=== PATIENT | female | born 1960 | race Caucasian/White ===

== ENCOUNTER → 2016-12-15 | Outpatient (CLI) | payer BC ==
[~2016-12-15] MED LIST: ATRV10T PO; BSP10T PO; CHOL10003 PO; FLUO20CA25 PO; FLUO40CA PO; LORA1TAB PO; NF-ESOM40C PO
--- NOTE | 2016-12-18 17:50 | Diagnostic Imaging Report ---
Bilateral screening mammogram. The current study was also evaluated with a Computer Aided Detection (CAD) system. INDICATION: Screening. No current complaints stated on the questionnaire. COMPARISON: 10/09/15. FINDINGS: The breasts are composed of heterogeneously dense parenchyma which may decrease mammographic sensitivity. There are scattered benign-appearing calcifications seen. Allowing for technique and positional differences, no suspicious change is seen. IMPRESSION: No significant change. ACR BI-RADS Category 2: Benign findings. Result letter will be mailed to the patient. Note: At least 10% of breast cancer is not imaged by mammography. Dictated by: Dictated on workstation # [id number]
== END ==
LOC: RAD 07:19
PROVIDERS: ATTEND Obstetrics & Gynecology
DX: Z12.31 Encounter for screening mammogram for malignant neoplasm of breast (principal)
CPT/HCPCS: 77067

== ENCOUNTER 2017-12-03 13:45 | Outpatient (RCR) | payer BC | END 2017-12-03 14:20 | disposition home or self-care (01) | PROVIDERS: ATTEND Orthopaedic Surgery | DX: M17.12 Unilateral primary osteoarthritis, left knee (principal); E66.01 Morbid (severe) obesity due to excess calories ==

== ENCOUNTER → 2017-12-16 | Outpatient (CLI) | payer BC ==
--- NOTE | 2017-12-16 10:11 | Diagnostic Imaging Report ---
INDICATION: Routine screening. COMPARISON: 12/15/2016 and 10/09/2015. EXAMINATION: 3D digital tomography bilateral. TECHNIQUE: Bilateral 3D digital tomographic views were obtained with [employer] and reviewed on a [employer] workstation. In addition, CAD (computer aided detection) was utilized. FINDINGS: Both breasts are heterogeneously dense, limiting the sensitivity of mammography. The parenchymal pattern appears stable. A benign-appearing nodular density in the retroareolar medial left breast appears stable. No new mass or malignant appearing microcalcifications are seen. The axillae are unremarkable. IMPRESSION: No mammographic features suspicious for malignancy are identified. ACR BI-RADS Category 2: Benign findings. Result letter will be mailed to the patient. Note: At least 10% of breast cancer is not imaged by mammography. Dictated by: Dictated on workstation # [id number]
== END ==
LOC: RAD 07:52
PROVIDERS: ATTEND Obstetrics & Gynecology
DX: Z12.31 Encounter for screening mammogram for malignant neoplasm of breast (principal)
CPT/HCPCS: 77067

== ENCOUNTER → 2018-05-12 | Outpatient (CLI) | payer BC ==
--- NOTE | 2018-05-12 08:23 | Diagnostic Imaging Report ---
DEXA scan Indication: Screening for osteoporosis. There are no prior studies available for comparison. The bone mineral density of the hips and spine was measured. The T score for the spine is 2.2. The T score for each hip is 1.5. All these values are within normal limits. Impression: The bone mineral density of the hips and spine is within normal limits. Dictated by: Dictated on workstation # [id number]
== END ==
LOC: RAD 07:20
PROVIDERS: ATTEND Family Medicine
DX: Z13.820 Encounter for screening for osteoporosis (principal); M85.89 Other specified disorders of bone density and structure, multiple sites; Z78.0 Asymptomatic menopausal state
CPT/HCPCS: 77080

== ENCOUNTER → 2018-11-01 | Outpatient (CLI) | payer BC ==
--- NOTE | 2018-11-01 14:01 | Diagnostic Imaging Report ---
INDICATION: Right leg pain. Grayscale, color-flow and duplex Doppler evaluation of the right lower extremity arterial system was performed. Primarily triphasic waveforms are identified throughout the right lower extremity arterial system. Velocities are normal. No high-grade stenosis or occlusion is seen. The anterior tibial artery was not well visualized but there is flow within the posterior tibial and dorsalis pedis at the ankle. IMPRESSION: Unremarkable right lower extremity arterial Doppler. Dictated by: Dictated on workstation # [id number]
== END ==
LOC: RAD 12:16
PROVIDERS: ATTEND Family Medicine
DX: M79.604 Pain in right leg (principal)
CPT/HCPCS: 93926

== ENCOUNTER → 2018-11-17 | Outpatient (CLI) | payer BC | LOC: CARD 08:04 | PROVIDERS: ATTEND Family Medicine | DX: R07.9 Chest pain, unspecified (principal); R60.9 Edema, unspecified | CPT/HCPCS: 93306 ==

== ENCOUNTER → 2018-12-19 | Outpatient (CLI) | payer BC ==
--- NOTE | 2018-12-19 11:55 | Diagnostic Imaging Report ---
INDICATION: Screening. COMPARISON: 12/16/2017, 12/15/2016, and 10/10/2015. TECHNIQUE: Bilateral CC and MLO 3D mammography was performed. The current study was also evaluated with a Computer Aided Detection (CAD) system. FINDINGS: The fibroglandular tissue is heterogeneously dense bilaterally. There are a few benign type calcifications. There is no dominant mass, spiculated lesion, or suspicious calcifications identified. The skin, nipples, and axillae are unremarkable. IMPRESSION: Benign findings. ACR BI-RADS Category 2: Benign findings. Result letter will be mailed to the patient. Note: At least 10% of breast cancer is not imaged by mammography. Dictated by: Dictated on workstation # [id number]
== END ==
LOC: RAD 07:12
PROVIDERS: ATTEND Obstetrics & Gynecology
DX: Z12.31 Encounter for screening mammogram for malignant neoplasm of breast (principal)
CPT/HCPCS: 77067

== ENCOUNTER → 2018-12-27 | Outpatient (CLI) | payer BC | LOC: CARD 09:53 | PROVIDERS: ATTEND Family Medicine | DX: R07.9 Chest pain, unspecified (principal) | CPT/HCPCS: 93017 ==

== ENCOUNTER 2019-01-05 20:37 | Outpatient (CLI) | payer BC | END 2019-01-06 06:09 | disposition home or self-care (01) | LOC: SLEEP 20:37 | PROVIDERS: ATTEND Family Medicine | DX: G47.33 Obstructive sleep apnea (adult) (pediatric) (principal); G47.10 Hypersomnia, unspecified; I10 Essential (primary) hypertension; R06.83 Snoring; F39 Unspecified mood [affective] disorder | CPT/HCPCS: 95810 ==

== ENCOUNTER 2019-03-02 09:45 | Outpatient (CLI) | payer BC ==
[~2019-03-02] VITALS: Ht 162.6 cm; Wt 87.5 kg
[2019-03-02] MEDS ORDERED: MEDR2.5T6 PO (10:19)
[2019-03-02] MEDS ORDERED: ARIP5TAB12 PO (10:19)
[2019-03-02] MEDS ORDERED: CHOL500044 PO (10:19)
[2019-03-02] MEDS ORDERED: ESTR1TAB24 PO (10:19)
[2019-03-02] MEDS ORDERED: LORA10TA7 PO (10:19)
[2019-03-02] MEDS ORDERED: VILA40TA PO (10:19)
== END 2019-03-02 10:23 | disposition home or self-care (01) ==
LOC: PREOP 09:45
PROVIDERS: ATTEND Surgery
DX: Z01.818 Encounter for other preprocedural examination (principal)

== ENCOUNTER 2019-03-08 08:38 | Day surgery (SDC) | payer BC ==
[2019-03-08] VITALS (13 sets, daily range): BP systolic 88–130; BP diastolic 51–77
[~2019-03-08] VITALS: Ht 162.6 cm; Wt 87.5 kg
[~2019-03-08 08:38] MED LIST changes: +ARIP5TAB12 PO; +CHOL500044 PO; +ESTR1TAB24 PO; +LORA10TA7 PO; +MEDR2.5T6 PO; +VILA40TA PO
[2019-03-08] MEDS ORDERED: NS IV 500 ML 500 ML IV PRN (09:04)
[2019-03-08] MEDS ORDERED: LIDOCAINE JELLY 2% 6 ML SYRINGE MM PRN (09:15)
[2019-03-08] MEDS ORDERED: fentaNYL INJECTION 100 MCG/2 ML AMP IVP ONE (09:15)
[2019-03-08] MEDS ORDERED: MIDAZOLAM 2 MG/2 ML (VERSED) VIAL IVP ONE (09:15)
--- OUTSIDE RECORDS SUMMARY | 2019-03-08 09:17 | XMS REPORT ---
Author Author SAROJ CUELLO Organization [facility] Address [address] [place] [address] Care Team Providers Care Irrigationist Name Role Phone SAROJ CUELLO Unavailable PROBLEMS Type Condition ICD9-CM Code [id number] Code Onset Dates Condition Status SNOMED Code Problem Major depressive disorder, recurrent episode, moderate F33.1 Active 858411010 ALLERGIES No Information ENCOUNTERS Encounter Location Date Diagnosis [facility] [id number] [place] [phone] Oct, [place] [id number] [place] [phone] Jul, Major depressive disorder, recurrent episode, moderate F33.1 [facility] [id number] [place] [phone] Apr, [place] [id number] [place] [phone] Mar, Major depressive disorder, recurrent episode, moderate F33.1 [facility] [id number] [place] [phone] Mar, Major depressive disorder, recurrent episode, moderate F33.1 [facility] [id number] [place] [phone] Mar, Major depressive disorder, recurrent episode, moderate F33.1 [facility] [id number] [place] [phone] Feb, Major depressive disorder, recurrent episode, moderate F33.1 [facility] [id number] [address] Feb, Major depressive disorder, recurrent episode, moderate F33.1 [facility] [address] [facility] [id number] [address] Feb, Major depressive disorder, recurrent episode, moderate F33.1 [facility] [id number] [address] December, Major depressive disorder, recurrent episode, mild F33.0 [facility] [id number] [address] Nov, Major depressive disorder, recurrent episode, mild F33.0 [facility] [id number] [address] Oct, Major depressive disorder, recurrent episode, mild F33.0 [facility] [id number] [address] Aug, Acute non-recurrent frontal sinusitis J01.10 IMMUNIZATIONS No Known Immunizations SOCIAL HISTORY Never Assessed REASON FOR VISIT MIAH f/candida flores ma, no controlled meds prescribed by this narrative writer PLAN OF CARE Activity Details Follow Up 3 Months Reason: VITAL SIGNS Height 66 in 2018-08-09 Weight 209 lbs 2018-08-09 Heart Rate 94 bpm 2018-08-09 Respiratory Rate 29 2018-08-09 BMI 33.73 kg/m2 2018-08-09 Blood pressure systolic 132 mmHg 2018-08-09 Blood pressure diastolic 96 mmHg 2018-08-09 MEDICATIONS Medication Instructions Dosage Frequency Start Date End Date Duration Status Estradiol 1 MG Orally Once a day 1 tablet 24h Active Vitamin D Active Omeprazole 10 MG Orally Once a day 1 capsule 24h Active Abilify 5 MG Orally Once a day 1 tablet 24h 30 days Active Loratadine 10 MG Orally Once a day 1 tablet 24h Active Viibryd 40 MG Orally Once a day 1 tablet with food 24h 30 days Active Multivitamin Active MedroxyPROGESTERone Acetate 2.5 MG Orally Once a day 1 tablet with food 24h Active RESULTS No Results PROCEDURES No Known procedures INSTRUCTIONS MEDICATIONS ADMINISTERED No Known Medications MEDICAL (GENERAL) HISTORY Type Description Date Medical History GERD Medical History MDD Medical History anxiety
--- OUTSIDE RECORDS SUMMARY | 2019-03-08 09:18 | XMS REPORT ---
Author Author KATALINA SAROJ [facility] Address [address] [place] [address] Care Team Providers Care Performing Arts Technicians Name Role Phone KATALINA SAROJ Unavailable PROBLEMS Type Condition ICD9-CM Code [id number] Code Onset Dates Condition Status SNOMED Code Problem Major depressive disorder, recurrent episode, moderate F33.1 Active [id number] ALLERGIES No Information ENCOUNTERS Encounter Location Date Diagnosis [place] [id number] [place] [address] Jul, [place] [id number] [place] [phone] Apr, [facility] [id number] [place] [address] Mar, Major depressive disorder, recurrent episode, moderate F33.1 [place] [id number] [place] [address] Mar, Major depressive disorder, recurrent episode, moderate F33.1 [place] [id number] [address] Mar, Major depressive disorder, recurrent episode, moderate F33.1 [facility] [id number] [place] [address] Feb, Major depressive disorder, recurrent episode, moderate F33.1 [place] [id number] [place] [phone] Feb, Major depressive disorder, recurrent episode, moderate F33.1 [place] [id number] [address] Feb, Major depressive disorder, recurrent episode, moderate F33.1 [facility] [address] [facility] [id number] [address] December, Major depressive disorder, recurrent episode, mild F33.0 [facility] [id number] [address] Nov, Major depressive disorder, recurrent episode, mild F33.0 [facility] [id number] [address] Oct, Major depressive disorder, recurrent episode, mild F33.0 [facility] [address] [facility] [id number] [address] Aug, Acute non-recurrent frontal sinusitis J01.10 IMMUNIZATIONS No Known Immunizations SOCIAL HISTORY Never Assessed REASON FOR VISIT PA denied PLAN OF CARE VITAL SIGNS MEDICATIONS Medication Instructions Dosage Frequency Start Date End Date Duration Status Aripiprazole 2 MG Orally Once a day 1 tablet 24h Mar, 30 day(s) Active RESULTS No Results PROCEDURES No Known procedures INSTRUCTIONS MEDICATIONS ADMINISTERED No Known Medications MEDICAL (GENERAL) HISTORY Type Description Date Medical History GERD Medical History MDD Medical History anxiety
--- OUTSIDE RECORDS SUMMARY | 2019-03-08 09:18 | XMS REPORT ---
Author Author GERMAIN KUMAR [facility] Address [address] [place] [address] Care Team Providers Care Screen Operator Name Role Phone GERMAIN KUMAR Unavailable PROBLEMS Type Condition ICD9-CM Code [id number] Code Onset Dates Condition Status SNOMED Code Problem Major depressive disorder, recurrent episode, mild F33.0 Active [id number] ALLERGIES Substance Reaction Event Type Date Status Codeine Sulfate Unknown Drug Allergy Aug, Active ENCOUNTERS Encounter Location Date Diagnosis [facility] [address] [address] Feb, [facility] [id number] [place] [address] December, Major depressive disorder, recurrent episode, mild F33.0 [facility] [id number] [place] [address] Nov, Major depressive disorder, recurrent episode, mild F33.0 [facility] [address] [address] Oct, Major depressive disorder, recurrent episode, mild F33.0 [facility] [address] [place] [address] Aug, Acute non-recurrent frontal sinusitis J01.10 IMMUNIZATIONS Vaccine Route Administration Date Status DEPO MEDROL 40 MG/ML IM Intramuscular Aug 28, 2017 Administered DEXAMETHASONE 20MG/5 ML (PER 1 MG) IM Intramuscular Aug 28, 2017 Administered SOCIAL HISTORY Never Assessed REASON FOR VISIT cough, sinus pressure, head and chest congestion. says she gets sinus infections frequently. been sick for 3 days. [email or web address] PLAN OF CARE Activity Details Follow Up prn Reason: VITAL SIGNS Height 66 in 2017-08-28 Weight 205.4 lbs 2017-08-28 Temperature 98.6 degrees Fahrenheit 2017-08-28 Heart Rate 84 bpm 2017-08-28 Respiratory Rate 20 2017-08-28 BMI 33.15 kg/m2 2017-08-28 Blood pressure systolic 130 mmHg 2017-08-28 Blood pressure diastolic 82 mmHg 2017-08-28 MEDICATIONS Medication Instructions Dosage Frequency Start Date End Date Duration Status Pristiq 25 MG Orally Once a day 2 tablets 24h Active RESULTS No Results PROCEDURES Procedure Date Ordered Result Body Site DEPO MEDROL 40 MG/ML Aug 28, 2017 THER/PROPH/DIAG INJ, SC/IM Aug 28, 2017 DEXAMETHASONE 20MG/5 ML (PER 1 MG) Aug 28, 2017 INSTRUCTIONS MEDICATIONS ADMINISTERED No Known Medications
--- OUTSIDE RECORDS SUMMARY | 2019-03-08 09:18 | XMS REPORT ---
Author Author KATALINA SAROJ [facility] Address [address] [place] [address] Care Team Providers Care Pipe Organ Mechanic Name Role Phone KATALINA SAROJ Unavailable PROBLEMS Type Condition ICD9-CM Code [id number] Code Onset Dates Condition Status SNOMED Code Problem Major depressive disorder, recurrent episode, moderate F33.1 Active [id number] ALLERGIES Substance Reaction Event Type Date Status Codeine Sulfate anxious Drug Allergy Feb, Active ENCOUNTERS Encounter Location Date Diagnosis [place] [id number] [place] [address] Jul, [facility] [id number] [place] [address] Mar, Major depressive disorder, recurrent episode, moderate F33.1 [facility] [id number] [place] [address] Mar, Major depressive disorder, recurrent episode, moderate F33.1 [place] [address] [place] [address] Mar, Major depressive disorder, recurrent episode, moderate F33.1 [facility] [id number] [place] [address] Feb, Major depressive disorder, recurrent episode, moderate F33.1 [facility] [id number] [place] [address] Feb, Major depressive disorder, recurrent episode, moderate F33.1 [facility] [address] [place] [address] Feb, Major depressive disorder, recurrent episode, moderate F33.1 [facility] [id number] [place] [address] December, Major depressive disorder, recurrent episode, mild F33.0 [facility] [address] [facility] [id number] [address] Nov, Major depressive disorder, recurrent episode, mild F33.0 [facility] [address] [facility] [id number] [address] Oct, Major depressive disorder, recurrent episode, mild F33.0 [facility] [address] [facility] [id number], [place] [address] Aug, Acute non-recurrent frontal sinusitis J01.10 IMMUNIZATIONS No Known Immunizations SOCIAL HISTORY Never Assessed REASON FOR VISIT intake-[facility]AR[facility] PLAN OF CARE Activity Details Follow Up 4 Weeks- 6 Weeks Reason: VITAL SIGNS Height 66 in 2018-03-03 Weight 207.3 lbs 2018-03-03 Heart Rate 75 bpm 2018-03-03 Respiratory Rate 18 2018-03-03 BMI 33.46 kg/m2 2018-03-03 Blood pressure systolic 138 mmHg 2018-03-03 Blood pressure diastolic 80 mmHg 2018-03-03 MEDICATIONS Medication Instructions Dosage Frequency Start Date End Date Duration Status Loratadine 10 MG Orally Once a day 1 tablet 24h Active Estradiol 1 MG Orally Once a day 1 tablet 24h Active Viibryd 40 MG Orally Once a day 1 tablet with food 24h Active Omeprazole 10 MG Orally Once a day 1 capsule 24h Active Abilify 2 MG Orally Once a day 1 tablet 24h Feb, 30 day(s) Active Vitamin D Active Multivitamin Active Lorazepam 1 MG Orally Once a day 1 tablet 24h Active MedroxyPROGESTERone Acetate 2.5 MG Orally Once a day 1 tablet with food 24h Active RESULTS No Results PROCEDURES No Known procedures INSTRUCTIONS MEDICATIONS ADMINISTERED No Known Medications MEDICAL (GENERAL) HISTORY Type Description Date Medical History GERD Medical History MDD Medical History anxiety
--- OUTSIDE RECORDS SUMMARY | 2019-03-08 09:18 | XMS REPORT | Continuity of Care Document ---
Author Organization Unknown Address Unknown Allergies Active Description Code Type Severity Reaction Onset Reported/Identified Relationship to Patient Clinical Status Yes No Known Drug Allergies [id number] Drug Allergy Unknown N/A 06/12/2011 Yes codeine [id number] Drug Allergy Unknown "MAKES ME NERVO 03/02/2019 Medications There is no data. Problems Date Dx Coded Attending Type Code Diagnosis Diagnosed By 07/22/1419 DONNELL BURTON DEZ Kai Ot E66.01 MORBID (SEVERE) OBESITY DUE TO EXCESS CA 07/22/1419 DONNELL BURTON DEZ Quinn Ot M17.12 UNILATERAL PRIMARY OSTEOARTHRITIS, LEFT 05/06/2010 Ot 272.4 05/06/2010 Ot 786.05 05/06/2010 Ot 786.59 05/06/2010 Ot 794.30 06/05/2013 DONNELL DO DEZ Quinn Ot V43.65 06/05/2013 DONNELL DO DEZ Quinn Ot V54.81 06/05/2013 DONNELL DO DEZ Quinn Ot V57.1 06/29/2013 DONNELL DO DEZ Quinn Ot V43.65 06/29/2013 DONNELL DO DEZ Quinn Ot V54.81 06/29/2013 DONNELL BURTON DEZ Quinn Ot V57.1 08/28/2014 Ot 786.59 08/28/2014 Ot V76.12 08/28/2014 Ot 786.59 08/28/2014 Ot 786.2 08/28/2014 Ot 272.4 08/28/2014 Ot 413.9 08/28/2014 Ot 786.05 08/28/2014 Ot 794.39 08/28/2014 Ot V72.63 08/28/2014 Ot V72.81 08/28/2014 Ot V76.12 08/28/2014 Ot 455.0 08/28/2014 Ot 564.00 08/28/2014 Ot V76.51 08/28/2014 Ot 719.06 08/28/2014 Ot 719.46 08/28/2014 Ot V76.12 08/28/2014 Ot 729.5 08/28/2014 SARAH MILLER, PING Wheeler Ot V76.12 09/20/2014 SARAH MILLER, PING Wheeler Ot V76.12 10/09/2015 Ot 786.59 10/09/2015 Ot 786.2 10/09/2015 Ot 272.4 10/09/2015 Ot 413.9 10/09/2015 Ot 786.05 10/09/2015 Ot 794.39 10/09/2015 Ot V72.63 10/09/2015 Ot V72.81 10/09/2015 Ot V76.12 10/09/2015 Ot 455.0 10/09/2015 Ot 564.00 10/09/2015 Ot V76.51 10/09/2015 Ot 719.06 10/09/2015 Ot 719.46 10/09/2015 Ot V76.12 10/09/2015 Ot 729.5 10/09/2015 SARAH MILLER, PING Wheeler Ot V76.12 10/09/2015 SARAH MILLER, PING Summer Ot V76.12 10/10/2015 SARAH MILLER, PING Wheeler Ot Z12.31 10/15/2015 PING SMITH MD Ot Z12.31 10/28/2015 PING SMITH MD Ot Z12.31 12/16/2016 PING SMITH MD Ot Z12.31 ENCNTR SCREEN MAMMOGRAM FOR MALIGNANT NE 12/23/2016 PING SMITH MD, Ot Z12.31 ENCNTR SCREEN MAMMOGRAM FOR MALIGNANT NE 12/03/2017 DEZ JACOBO DO Ot E66.01 MORBID (SEVERE) OBESITY DUE TO EXCESS CA 12/03/2017 DEZ JACOBO DO Ot M17.12 UNILATERAL PRIMARY OSTEOARTHRITIS, LEFT 12/17/2017 PING SMITH MD, Ot Z12.31 ENCNTR SCREEN MAMMOGRAM FOR MALIGNANT NE 12/29/2017 PING SMITH MD, Ot Z12.31 ENCNTR SCREEN MAMMOGRAM FOR MALIGNANT NE 05/13/2018 CAROLIN WHALEY DO Ot M85.89 OT DISRD OF BONE DENSITY AND STRUCTURE, 05/13/2018 BRAXTONNDER , CAROLIN S Ot Z13.820 ENCOUNTER FOR SCREENING FOR OSTEOPOROSIS 05/13/2018 BRAXTONNDER , CAROLIN S Ot Z78.0 ASYMPTOMATIC MENOPAUSAL STATE 05/25/2018 BRAXTONNDER , CAROLIN S Ot M85.89 OTH DISRD OF BONE DENSITY AND STRUCTURE, 05/25/2018 BRAXTONNDTAMIKO BURTON, CAROLIN S Ot Z13.820 ENCOUNTER FOR SCREENING FOR OSTEOPOROSIS 05/25/2018 BRAXTONNDER , CAROLIN S Ot Z78.0 ASYMPTOMATIC MENOPAUSAL STATE 11/02/2018 BRAXTONNDER DO, CAROLIN S Ot M79.604 PAIN IN RIGHT LEG 11/18/2018 BRAXTONNDER DO, CAROLIN S Ot M79.604 PAIN IN RIGHT LEG 11/21/2018 BRAXTONNDER DO, CAROLIN S Ot R07.9 CHEST PAIN, UNSPECIFIED 11/21/2018 BRAXTONNDER DO, CAROLIN S Ot R60.9 EDEMA, UNSPECIFIED 12/02/2018 ORENDER DO, CAROLIN S Ot R07.9 CHEST PAIN, UNSPECIFIED 12/02/2018 ORENDER DO, CAROLIN S Ot R60.9 EDEMA, UNSPECIFIED 12/20/2018 SARAH MILLER, PING Wheeler Ot Z12.31 ENCNTR SCREEN MAMMOGRAM FOR MALIGNANT NE 12/25/2018 PING SMITH MD Ot Z12.31 ENCNTR SCREEN MAMMOGRAM FOR MALIGNANT NE 12/29/2018 BRAXTONNDER DO, CAROLIN S Ot R07.9 CHEST PAIN, UNSPECIFIED 01/02/2019 ORENDER DO, CAROLIN S Ot R07.9 CHEST PAIN, UNSPECIFIED 01/06/2019 ORENDER DO, CAROLIN S Ot F39 UNSPECIFIED MOOD [AFFECTIVE] DISORDER 01/06/2019 BRAXTONNDER DO, CAROLIN S Ot G47.10 HYPERSOMNIA, UNSPECIFIED 01/06/2019 ORENDER DO, CAROLIN S Ot G47.33 OBSTRUCTIVE SLEEP APNEA (ADULT) (PEDIATR 01/06/2019 BRAXTONNDER DO CAROLIN S Ot I10 ESSENTIAL (PRIMARY) HYPERTENSION 01/06/2019 BRAXTONNDER DO, CAROLIN S Ot R06.83 SNORING 01/10/2019 BRAXTONNDER DO, CAROLIN S Ot F39 UNSPECIFIED MOOD [AFFECTIVE] DISORDER 01/10/2019 BRAXTONATILIOTAMIKO DO CAROLIN S Ot G47.10 HYPERSOMNIA, UNSPECIFIED 01/10/2019 CHARLIETAMIKO ELENITA BURTONLINE S Ot G47.33 OBSTRUCTIVE SLEEP APNEA (ADULT) (PEDIATR 01/10/2019 ELENITA WHALEY DOLINE S Ot I10 ESSENTIAL (PRIMARY) HYPERTENSION 01/10/2019 CAROLIN WHALEY DO S Ot R06.83 SNORING 03/02/2019 MYRIAM HUSTON MD Ot Z01.818 ENCOUNTER FOR OTHER PREPROCEDURAL EXAMIN 03/02/2019 MYRIAM HUSTON MD, Ot Z01.818 ENCOUNTER FOR OTHER PREPROCEDURAL EXAMIN 03/02/2019 MYRIAM HUSTON MD, Ot Z01.818 ENCOUNTER FOR OTHER PREPROCEDURAL EXAMIN 03/02/2019 MYRIAM HUSTON MD, Ot Z01.818 ENCOUNTER FOR OTHER PREPROCEDURAL EXAMIN Procedures There is no data. Results There is no data. Encounters ACCT No. Visit Date/Time Discharge Status Pt. Type Provider Facility Loc./Unit Complaint [id number] 03/02/2019 16:40:00 03/02/2019 23:59:59 [facility] [id number] 03/02/2019 09:45:00 03/02/2019 10:23:00 DIS Outpatient MYRIAM HUSTON MD [facility] PREOP COLONOSCOPY [id number] 01/05/2019 20:37:00 01/06/2019 06:09:00 DIS Outpatient CAROLIN WHALEY DO S [facility] SLEEP NATALY [id number] 12/27/2018 09:53:00 12/27/2018 23:59:59 CLS Outpatient CAROLIN WHALEY DO [facility] CARD CHEST PAIN [id number] 12/19/2018 07:12:00 12/19/2018 23:59:59 CLS Outpatient PING SMITH MD [facility] RAD SCREENING [id number] 11/17/2018 08:04:00 11/17/2018 23:59:59 CLS Outpatient CAROLIN WHALEY DO [facility] CARD CHEST PAIN, EDEMA [id number] 11/01/2018 12:16:00 11/01/2018 23:59:59 CLS Outpatient CAROLIN WHALEY DO [facility] RAD RT LEG PAIN [id number] 05/12/2018 07:20:00 05/12/2018 23:59:59 CLS Outpatient CAROLIN WHALEY DO [facility] RAD POSTMENOPAUSAL OSTEOPENIA W/FRACTURE [id number] 12/16/2017 07:52:00 12/16/2017 23:59:59 CLS Outpatient PING SMITH MD [facility] RAD ROUTINE [id number] 12/03/2017 13:45:00 12/03/2017 14:20:00 DIS Outpatient DEZ JACOBO DO [facility] REHAB MORBID OBESITY AND SECONDARY OA LEFT KNEE [id number] 12/15/2016 07:19:00 12/15/2016 23:59:59 CLS Outpatient PING SMITH MD [facility] RAD SCREENING [id number] 10/09/2015 07:13:00 10/09/2015 23:59:59 CLS Outpatient PING SMITH MD [facility] RAD [id number] 08/28/2014 07:17:00 08/28/2014 23:59:59 CLS Outpatient PING SMITH MD [facility] RAD [id number] 08/01/2013 09:12:00 08/01/2013 23:59:59 CLS Outpatient PING SMITH MD [facility] RAD [id number] 06/29/2013 15:55:00 06/29/2013 16:31:00 DIS Outpatient DEZ JACOBO DO [facility] REHAB [id number] 04/19/2013 08:01:00 06/05/2013 00:01:00 DIS Outpatient DEZ JACOBO DO [facility] REHAB [id number] 03/08/2019 09:30:00 PEN MYRIAM Messina MD [facility] ENDO SCREENING [id number] 07/22/2012 16:01:00 Document Registration [id number] 06/07/2012 07:09:00 Document Registration [id number] 02/16/2012 08:18:00 Document Registration [id number] 06/12/2011 09:07:00 Document Registration [id number] 03/31/2011 06:48:00 Document Registration [id number] 05/06/2010 05:41:00 Document Registration [id number] 05/05/2010 08:02:00 Document Registration [id number] 04/24/2010 11:27:00 Document Registration [id number] 04/22/2010 08:21:00 Document Registration [id number] 03/21/2010 07:58:00 Document Registration 03/201801/27/2019 11:04:35 01/27/2019 23:59:59 CLS Outpatient Carolin Whaley 10/30/17 03/24/2017 09:23:40 03/24/2017 23:59:59 CLS Outpatient Carolin Whaley
--- OUTSIDE RECORDS SUMMARY | 2019-03-08 09:18 | XMS REPORT ---
Author Author SAROJ DARDEN [facility] Address [address] [place] [address] Care Team Providers Care Cable Armorer Operator Name Role Phone KATALINA SAROJ Unavailable PROBLEMS Type Condition ICD9-CM Code XHK35-HQ Code Onset Dates Condition Status SNOMED Code Problem Major depressive disorder, recurrent episode, moderate F33.1 Active [id number] ALLERGIES No Information ENCOUNTERS Encounter Location Date Diagnosis [facility] [address] [place] [address] Jul, [facility] [id number] [place] [address] Apr, [facility] [id number] [place] [address] Apr, [facility] [id number] [place] [address] Mar, Major depressive disorder, recurrent episode, moderate F33.1 [facility] [address] [place] [address] Mar, Major depressive disorder, recurrent episode, moderate F33.1 [facility] [id number] [place] [address] Mar, Major depressive disorder, recurrent episode, moderate F33.1 [facility] [id number] [place] [address] Feb, Major depressive disorder, recurrent episode, moderate F33.1 [facility] [address] [place] [address] Feb, Major depressive disorder, recurrent episode, moderate F33.1 [facility] [address] [place] [address] Feb, Major depressive disorder, recurrent episode, moderate F33.1 [facility] [address] [place] [address] December, Major depressive disorder, recurrent episode, mild F33.0 [facility] [address] [address] Nov, Major depressive disorder, recurrent episode, mild F33.0 [facility] [address] [address] Oct, Major depressive disorder, recurrent episode, mild F33.0 [facility] [address] [id number] [address] Aug, Acute non-recurrent frontal sinusitis J01.10 IMMUNIZATIONS No Known Immunizations SOCIAL HISTORY Never Assessed REASON FOR VISIT medication PLAN OF CARE VITAL SIGNS MEDICATIONS Medication Instructions Dosage Frequency Start Date End Date Duration Status Abilify 2 MG Orally Once a day 1 tablet 24h Feb, 30 day(s) Active RESULTS No Results PROCEDURES No Known procedures INSTRUCTIONS MEDICATIONS ADMINISTERED No Known Medications MEDICAL (GENERAL) HISTORY Type Description Date Medical History GERD Medical History MDD Medical History anxiety
--- OUTSIDE RECORDS SUMMARY | 2019-03-08 09:18 | XMS REPORT ---
Author Author LEENA MORALES Organization [facility] Address [address] [place] [address] Care Team Providers Care Community Arts Centre Manager Name Role Phone LEENA MORALES Unavailable PROBLEMS Type Condition ICD9-CM Code [id number] Code Onset Dates Condition Status SNOMED Code Problem Major depressive disorder, recurrent episode, moderate F33.1 Active [id number] ALLERGIES No Information ENCOUNTERS Encounter Location Date Diagnosis [facility] [address] [address] Mar, [facility] [id number] [place] [address] Feb, Major depressive disorder, recurrent episode, moderate F33.1 [facility] [address] [place] [address] Feb, Major depressive disorder, recurrent episode, moderate F33.1 [facility] [address] [place] [address] Feb, Major depressive disorder, recurrent episode, moderate F33.1 [facility] [address] [address] December, Major depressive disorder, recurrent episode, mild F33.0 [facility] [address] [address] Nov, Major depressive disorder, recurrent episode, mild F33.0 [facility] [address] [place] [address] Oct, Major depressive disorder, recurrent episode, mild F33.0 [facility] [id number] [address] Aug, Acute non-recurrent frontal sinusitis J01.10 IMMUNIZATIONS No Known Immunizations SOCIAL HISTORY Never Assessed REASON FOR VISIT f/u PLAN OF CARE Activity Details Follow Up 4 Weeks Reason:depression VITAL SIGNS MEDICATIONS Unknown Medications RESULTS No Results PROCEDURES Procedure Date Ordered Result Body Site Psychotherapy, patient &/family, 45 minutes, established patient December 08, 2017 INSTRUCTIONS MEDICATIONS ADMINISTERED No Known Medications MEDICAL (GENERAL) HISTORY Type Description Date Medical History GERD Medical History MDD Medical History anxiety
--- OUTSIDE RECORDS SUMMARY | 2019-03-08 09:18 | XMS REPORT ---
Author Author LEENA MORALES Organization [facility] Address [address] [place] [address] Care Team Providers Care Blasting Machine Operator Name Role Phone LEENA MORALES Unavailable PROBLEMS Type Condition ICD9-CM Code PST39-IU Code Onset Dates Condition Status SNOMED Code Problem Major depressive disorder, recurrent episode, moderate F33.1 Active [id number] ALLERGIES No Information ENCOUNTERS Encounter Location Date Diagnosis [facility] [address] [address] Jul, [place] [address] [place] [address] Mar, Major depressive disorder, recurrent episode, moderate F33.1 [facility] [address], [place] [address] Mar, Major depressive disorder, recurrent episode, moderate F33.1 [place] [address] [address] Mar, Major depressive disorder, recurrent episode, moderate F33.1 [facility] [address], [place] [address] Feb, Major depressive disorder, recurrent episode, moderate F33.1 [facility] [address] [address] Feb, Major depressive disorder, recurrent episode, moderate F33.1 [facility] [address], [place] [address] Feb, Major depressive disorder, recurrent episode, moderate F33.1 [facility] [address], [place] [address] December, Major depressive disorder, recurrent episode, mild F33.0 [facility] [address] [facility] [id number] [place] [address] Nov, Major depressive disorder, recurrent episode, mild F33.0 [facility] [address] [facility] [id number] [address] Oct, Major depressive disorder, recurrent episode, mild F33.0 [facility] [address] [facility] [id number], [place] [address] Aug, Acute non-recurrent frontal sinusitis J01.10 IMMUNIZATIONS No Known Immunizations SOCIAL HISTORY Never Assessed REASON FOR VISIT f/u PLAN OF CARE Activity Details Follow Up Next available Reason:depression VITAL SIGNS MEDICATIONS Unknown Medications RESULTS No Results PROCEDURES Procedure Date Ordered Result Body Site Psychotherapy, patient &/family, 45 minutes, established patient February 22, 2018 INSTRUCTIONS MEDICATIONS ADMINISTERED No Known Medications MEDICAL (GENERAL) HISTORY Type Description Date Medical History GERD Medical History MDD Medical History anxiety
--- OUTSIDE RECORDS SUMMARY | 2019-03-08 09:18 | XMS REPORT ---
Author Author LEENA MORALES Organization [facility] Address [address] [place] [address] Care Team Providers Care Scheduling Administrator Name Role Phone LEENA MORALES Unavailable PROBLEMS Type Condition ICD9-CM Code TOD29-BR Code Onset Dates Condition Status SNOMED Code Problem Major depressive disorder, recurrent episode, moderate F33.1 Active [id number] ALLERGIES No Information ENCOUNTERS Encounter Location Date Diagnosis [place] [id number] [address] Mar, [place] [id number] [place] [address] Mar, Major depressive disorder, recurrent episode, moderate F33.1 [facility] [address] [place] [address] Feb, Major depressive disorder, recurrent episode, moderate F33.1 [place] [address] [address] Feb, Major depressive disorder, recurrent episode, moderate F33.1 [facility] [address], [place] [address] Feb, Major depressive disorder, recurrent episode, moderate F33.1 [facility] [address], [place] [address] December, Major depressive disorder, recurrent episode, mild F33.0 [facility] [address] [place] [address] Nov, Major depressive disorder, recurrent episode, mild F33.0 [facility] [address], [place] [address] Oct, Major depressive disorder, recurrent episode, mild F33.0 [facility] [address] [facility] [id number] [place] [address] Aug, Acute non-recurrent frontal sinusitis J01.10 IMMUNIZATIONS No Known Immunizations SOCIAL HISTORY Never Assessed REASON FOR VISIT f/u, Mild depression. PLAN OF CARE Activity Details Follow Up 4 Weeks Reason:depression VITAL SIGNS MEDICATIONS Unknown Medications RESULTS No Results PROCEDURES Procedure Date Ordered Result Body Site Psychotherapy, patient &/family, 45 minutes, established patient January 06, 2018 INSTRUCTIONS MEDICATIONS ADMINISTERED No Known Medications MEDICAL (GENERAL) HISTORY Type Description Date Medical History GERD Medical History MDD Medical History anxiety
--- OUTSIDE RECORDS SUMMARY | 2019-03-08 09:18 | XMS REPORT ---
Author Author LEENA MORALES Organization [facility] Address [address] [place] [address] Care Team Providers Care Sales Agent Casualty Insurance Name Role Phone LEENA MORALES Unavailable PROBLEMS Type Condition ICD9-CM Code [id number] Code Onset Dates Condition Status SNOMED Code Problem Major depressive disorder, recurrent episode, moderate F33.1 Active [id number] ALLERGIES No Information ENCOUNTERS Encounter Location Date Diagnosis [facility] [address] [address] Jul, [place] [address] [place] [address] Mar, Major depressive disorder, recurrent episode, moderate F33.1 [facility] [address] [address] Mar, Major depressive disorder, recurrent episode, moderate F33.1 [place] [address] [address] Mar, Major depressive disorder, recurrent episode, moderate F33.1 [facility] [address] [address] Feb, Major depressive disorder, recurrent episode, moderate F33.1 [facility] [address], [place] [address] Feb, Major depressive disorder, recurrent episode, moderate F33.1 [facility] [address], [place] [address] Feb, Major depressive disorder, recurrent episode, moderate F33.1 [facility] [address] [address] December, Major depressive disorder, recurrent episode, mild F33.0 [facility] [address] [facility] [id number] [place] [address] Nov, Major depressive disorder, recurrent episode, mild F33.0 [facility] [address] [facility] [id number] [address] Oct, Major depressive disorder, recurrent episode, mild F33.0 [facility] [address] [facility] [id number] [address] Aug, Acute non-recurrent frontal sinusitis J01.10 IMMUNIZATIONS No Known Immunizations SOCIAL HISTORY Never Assessed REASON FOR VISIT f/u PLAN OF CARE Activity Details Follow Up PRN Reason: VITAL SIGNS MEDICATIONS Unknown Medications RESULTS No Results PROCEDURES Procedure Date Ordered Result Body Site Psychotherapy, patient &/family, 30 minutes, established patient March 15, 2018 INSTRUCTIONS MEDICATIONS ADMINISTERED No Known Medications MEDICAL (GENERAL) HISTORY Type Description Date Medical History GERD Medical History MDD Medical History anxiety
--- OUTSIDE RECORDS SUMMARY | 2019-03-08 09:18 | XMS REPORT ---
Author Author KATALINA SAROJ [facility] Address [address] [place] [address] Care Team Providers Care Hearing Aid Technician Name Role Phone KATALINA SAROJ Unavailable PROBLEMS Type Condition ICD9-CM Code [id number] Code Onset Dates Condition Status SNOMED Code Problem Major depressive disorder, recurrent episode, moderate F33.1 Active [id number] ALLERGIES No Information ENCOUNTERS Encounter Location Date Diagnosis [place] [address] [place] [address] Jul, [place] [address] [place] [id number] [place] [address] Apr, [facility] [id number] [place] [address] Mar, Major depressive disorder, recurrent episode, moderate F33.1 [facility] [id number] [place] [address] Mar, Major depressive disorder, recurrent episode, moderate F33.1 [place] [address] [id number] [address] Mar, Major depressive disorder, recurrent episode, moderate F33.1 [facility] [id number] [place] [address] Feb, Major depressive disorder, recurrent episode, moderate F33.1 [facility] [id number] [place] [address] Feb, Major depressive disorder, recurrent episode, moderate F33.1 [place] [address] [place] [id number] [address] Feb, Major depressive disorder, recurrent episode, moderate F33.1 [facility] [address] [facility] [id number] [address] December, Major depressive disorder, recurrent episode, mild F33.0 [facility] [address], [place] [address] Nov, Major depressive disorder, recurrent episode, mild F33.0 [facility] [id number], [place] [address] Oct, Major depressive disorder, recurrent episode, mild F33.0 [facility] [id number], [place] [address] Aug, Acute non-recurrent frontal sinusitis J01.10 IMMUNIZATIONS No Known Immunizations SOCIAL HISTORY Never Assessed REASON FOR VISIT medication PLAN OF CARE VITAL SIGNS MEDICATIONS Unknown Medications RESULTS No Results PROCEDURES No Known procedures INSTRUCTIONS MEDICATIONS ADMINISTERED No Known Medications MEDICAL (GENERAL) HISTORY Type Description Date Medical History GERD Medical History MDD Medical History anxiety
--- OUTSIDE RECORDS SUMMARY | 2019-03-08 09:18 | XMS REPORT ---
Author Author SAROJ DARDEN [facility] Address [address] [place] [address] Care Team Providers Care Environmental Health Safety Manager Name Role Phone SAROJ DARDEN Unavailable PROBLEMS Type Condition ICD9-CM Code [id number] Code Onset Dates Condition Status SNOMED Code Problem Major depressive disorder, recurrent episode, moderate F33.1 Active [id number] ALLERGIES Substance Reaction Event Type Date Status Codeine Sulfate anxious Drug Allergy Mar, Active ENCOUNTERS Encounter Location Date Diagnosis [place] [id number] [place] [address] Jul, [facility] [id number] [place] [address] Apr, [facility] [id number] [place] [address] Mar, Major depressive disorder, recurrent episode, moderate F33.1 [facility] [id number] [place] [address] Mar, Major depressive disorder, recurrent episode, moderate F33.1 [facility] [id number] [place] [address] Mar, Major depressive disorder, recurrent episode, moderate F33.1 [facility] [id number] [place] [address] Feb, Major depressive disorder, recurrent episode, moderate F33.1 [facility] [address] [place] [address] Feb, Major depressive disorder, recurrent episode, moderate F33.1 [facility] [id number] [place] [address] Feb, Major depressive disorder, recurrent episode, moderate F33.1 [facility] [address] [facility] [id number] [address] December, Major depressive disorder, recurrent episode, mild F33.0 [facility] [id number], [place] [address] Nov, Major depressive disorder, recurrent episode, mild F33.0 [facility] [address], [place] [address] Oct, Major depressive disorder, recurrent episode, mild F33.0 [facility] [address] [facility] [id number] [address] Aug, Acute non-recurrent frontal sinusitis J01.10 IMMUNIZATIONS No Known Immunizations SOCIAL HISTORY Never Assessed REASON FOR VISIT PORSCHE Boateng MA PLAN OF CARE Activity Details Follow Up 3 Months Reason: VITAL SIGNS Height 66 in 2018-04-14 Weight 208 lbs 2018-04-14 Heart Rate 69 bpm 2018-04-14 Respiratory Rate 20 2018-04-14 Oximetry 97 % 2018-04-14 BMI 33.57 kg/m2 2018-04-14 Blood pressure systolic 138 mmHg 2018-04-14 Blood pressure diastolic 72 mmHg 2018-04-14 MEDICATIONS Medication Instructions Dosage Frequency Start Date End Date Duration Status Estradiol 1 MG Orally Once a day 1 tablet 24h Active Vitamin D Active Loratadine 10 MG Orally Once a day 1 tablet 24h Active Viibryd 40 MG Orally Once a day 1 tablet with food 24h Active Lorazepam 1 MG Orally Once a day 1 tablet 24h Active Omeprazole 10 MG Orally Once a day 1 capsule 24h Active Multivitamin Active Abilify 2 MG Orally Once a day 1 tablet 24h 30 days Active MedroxyPROGESTERone Acetate 2.5 MG Orally Once a day 1 tablet with food 24h Active RESULTS No Results PROCEDURES No Known procedures INSTRUCTIONS MEDICATIONS ADMINISTERED No Known Medications MEDICAL (GENERAL) HISTORY Type Description Date Medical History GERD Medical History MDD Medical History anxiety
[2019-03-08] MEDS ORDERED: NS IV 500 ML 500 ML ONE (09:19)
[2019-03-08] MEDS ORDERED: LIDOCAINE JELLY 2% 6 ML SYRINGE ONE (09:52)
[2019-03-08] MEDS ORDERED: fentaNYL INJECTION 100 MCG/2 ML AMP ONE (09:53)
[2019-03-08] MEDS ORDERED: MIDAZOLAM 2 MG/2 ML (VERSED) VIAL ONE ×6 (09:53→10:13)
--- NOTE | 2019-03-08 09:55 | Conscious Sedation/ASA ---
Conscious Sedation Pre-Proced Time 09:30 ASA Score 2 For ASA 3 and 4: Consider anesthesia and medical clearance. Also, for patients with a history of failed moderate sedation consider anesthesia. Airway Lungs Heart ASA score ASA 1: a normal healthy patient ASA 2: a patient with a mild systemic disease (mid diabetes, controlled hypertension, obesity ASA 3: a patient with a severe systemic disease that limits activity (angina, COPD, prior Myocardial infarction) ASA 4: a patient with an incapacitating disease that is a constant threat to life (CHF, renal failure) ASA 5: a moribund patient not expected to survive 24 hrs. (ruptured aneurysm) ASA 6: a declared brain- patient whose organs are being harvested. For emergent operations, add the letter E after the classification Mallampati Classification Grade 2 Sedation Plan Analgesia, Amnesia, Plan communicated to team members, Discussed options with patient/fam, Discussed risks with patient/fam The patient is an appropriate candidate to undergo the planned procedure, sedation, and anesthesia. The patient immediately re-assessed prior to indication. MYRIAM HUSTON MD Mar 08, 2019 09:55
--- NOTE | 2019-03-08 09:57 | Progress Note-Pre Operative ---
Pre-Operative Progress Note H&P Reviewed The H&P was reviewed, patient examined and no changes noted. Date Seen by Provider: Mar 08, 2019 Time Seen by Provider: 09:45 Date H&P Reviewed: Mar 08, 2019 Time H&P Reviewed: 09:30 Pre-Operative Diagnosis: screening colonoscopy MYRIAM HUSTON MD Mar 08, 2019 09:57
--- NOTE | 2019-03-08 09:58 | Discharge Inst-Surgical ---
D/C Lap Instructions-ROBEL Follow Up Appt in 2 weeks Activity as tolerated High Fiber Diet 25g or more per day Avoid Alcohol, Caffeine, Spicy [place] and Acid foods. Drink 64 fluid oz or more of fluids per day. Symptoms to Report: Fever over 101 degree F, Nausea/Vomiting If any problems/questions: Contact your physician or go to Emergency Room MYRIAM HUSTON MD Mar 08, 2019 09:58
[2019-03-08] MEDS ORDERED: ONDANSETRON 4 MG/2 ML (SDV) Z0FRAN IVP PRN (10:00)
[2019-03-08] MEDS ORDERED: ACETAMINOPHEN 325 MG TABLET PO PRN (10:00)
[2019-03-08] MEDS ORDERED: HYDROcodone/APAP 5 MG/325 MG (LORTAB) TAB PO PRN (10:00)
[2019-03-08] MEDS ORDERED: morphine INJ 10 MG/ML 1ML (SYR OR VIAL) IVP PRN ×2 (10:00)
--- NOTE | 2019-03-08 11:18 | Progress Note-Post Operative ---
Post-Operative Progess Note Surgeon (s)/Iron Piler (s) Surgeon MYRIAM HUSTON MD Iron Piler: none Pre-Operative Diagnosis screening colonoscopy Post-Operative Diagnosis mild chronic stage 2 ext and int hemorrhoids. Procedure & Operative Findings Date of Procedure 03/08/19 Procedure Performed/Findings colonoscopy Anesthesia Type cs Estimated Blood Loss Estimated blood loss (mL): minimal Specimens/Packing Specimens Removed none MYRIAM HUSTON MD Mar 08, 2019 11:18
--- NOTE | 2019-03-08 15:18 | OPERATIVE REPORT ---
DATE OF SERVICE: 03/08/2019 PRIMARY CARE PHYSICIAN: Carolin Whaley DO PREOPERATIVE DIAGNOSIS: Screening colonoscopy with a more recent history of diarrhea. POSTOPERATIVE DIAGNOSIS: Mild chronic stage II external and internal hemorrhoids, remainder of the rectum and colon were normal. PROCEDURE PERFORMED: Colonoscopy. SURGEON: Myriam Huston MD. ANESTHESIA: Conscious sedation. ESTIMATED BLOOD LOSS: Minimal. FINDINGS: Mild chronic stage II external and internal hemorrhoids. The remainder of the rectum and colon were normal. There were no mucosal inflammatory changes as well were no polyps or any neoplasms. DISPOSITION: The patient tolerated the procedure well. INDICATIONS: The patient is a 58-year-old female in need of a screening colonoscopy. However, in the past month, she has noticed more loose stools as well as several episodes of diarrhea. She did have a colonoscopy at around age 49 and reports that to be normal. Upon further questioning, she does report that she still does take in a significant amount of milk products including yogurt and ice cream. She does not report any red blood per rectum nor any dark tarry stools. She also does not report any family history of colon cancer. DESCRIPTION OF PROCEDURE: The patient was brought to the endoscopy suite, laid in the left lateral decubitus position. After adequate IV pain and sedating medications and conscious sedation anesthesia, a digital rectal examination was performed. Mild chronic stage II external and internal hemorrhoids were identified, which are not actively edematous nor inflamed and no bleeding. Normal sphincter tone was felt and there were no palpable masses. The endoscope was then intubated to the anus and rectum gently insufflated. The endoscope was then advanced to the valves of Rey of the rectum with no polyps or any neoplasms identified. The endoscope was then advanced through the sigmoid colon where no diverticulosis identified. The endoscope was then advanced to the remainder of the descending, transverse and ascending colon to the cecum. These segments were normal as well. There were no mucosal inflammatory changes to indicate any active colitis as well were no polyps or any neoplasms identified. The endoscope was then slowly withdrawn while taking a second look and suctioning of residual air with no additional findings. The patient tolerated the procedure well. We will recommend medical management with the incorporation of a high fiber diet with fiber supplementation to 25 grams or more daily. We will also recommend moderation of milk and milk products as well as green protein products as well. At this time, she does not need another colonoscopy for another 10 years; however, sooner if she becomes symptomatic. Job ID: [id number] DocumentID: [id number] Dictated Date: 03/08/2019 10:39:24 Contact [employer] Date: 03/08/2019 15:17:45 Dictated By: MYRIAM HUSTON MD
== END 2019-03-08 11:25 | disposition home or self-care (01) ==
LOC: ENDO 08:38
PROVIDERS: ATTEND Surgery
DX: R19.7 Diarrhea, unspecified (principal); K64.4 Residual hemorrhoidal skin tags; K64.8 Other hemorrhoids; F32.9 Major depressive disorder, single episode, unspecified; E55.9 Vitamin D deficiency, unspecified; Z79.52 Long term (current) use of systemic steroids; Z88.5 Allergy status to narcotic agent; Z96.651 Presence of right artificial knee joint; Z80.1 Family history of malignant neoplasm of trachea, bronchus and lung; Z79.899 Other long term (current) drug therapy

== ENCOUNTER → 2020-02-09 | Outpatient (CLI) | payer BC ==
--- NOTE | 2020-02-09 09:28 | Diagnostic Imaging Report ---
INDICATION: Routine screening. COMPARISON is made with prior mammograms from 12/19/2018 and 12/16/2017. 2-D and 3-D bilateral screening mammography was performed with CAD. Both breasts are heterogeneously dense, limiting the sensitivity of mammography. Fibronodular parenchymal pattern appears to be stable. No dominant mass or malignant appearing microcalcifications are seen. Axillae are unremarkable. IMPRESSION: BI-RADS Category 1 No mammographic features suspicious for malignancy are identified. ACR BI-RADS Category 1: Negative. Result letter will be mailed to the patient. Note: At least 10% of breast cancer is not imaged by mammography. Dictated by: Dictated on workstation # [id number]
== END ==
LOC: RAD 07:20
PROVIDERS: ATTEND Obstetrics & Gynecology
DX: Z12.31 Encounter for screening mammogram for malignant neoplasm of breast (principal)
CPT/HCPCS: 77063; 77067

== ENCOUNTER 2020-03-22 08:01 | Outpatient (RCR) | payer BC | END 2020-04-11 15:39 | disposition home or self-care (01) | PROVIDERS: ATTEND Orthopaedic Surgery | DX: M17.12 Unilateral primary osteoarthritis, left knee (principal); F32.9 Major depressive disorder, single episode, unspecified; Z96.651 Presence of right artificial knee joint; Z91.09 Other allergy status, other than to drugs and biological substances ==

== ENCOUNTER 2021-05-05 15:18 | Outpatient (RCR) | payer BC | END 2021-05-05 16:21 | disposition home or self-care (01) | PROVIDERS: ATTEND Orthopaedic Surgery | DX: Z47.1 Aftercare following joint replacement surgery (principal); Z96.652 Presence of left artificial knee joint; F32.9 Major depressive disorder, single episode, unspecified ==

== ENCOUNTER → 2021-05-28 | Outpatient (CLI) | payer BC ==
--- NOTE | 2021-05-28 11:51 | Diagnostic Imaging Report ---
INDICATION: Routine screening. Comparison is made with prior mammogram from 02/09/2020 and 12/19/2018. 2-D and 3-D bilateral screening mammography was performed with CAD. Both breasts remain heterogeneous and dense, limiting the sensitivity of mammography. The parenchymal pattern is stable. No mass or malignant-appearing microcalcifications are seen. Axillae are unremarkable. IMPRESSION: No mammographic features suspicious for malignancy are identified. BI-RADS Category 1 ACR BI-RADS Category 1: Negative. Result letter will be mailed to the patient. Note: At least 10% of breast cancer is not imaged by mammography. Dictated by: Dictated on workstation # [id number]
== END ==
LOC: RAD 07:38
PROVIDERS: ATTEND Family Medicine
DX: Z12.31 Encounter for screening mammogram for malignant neoplasm of breast (principal)
CPT/HCPCS: 77063; 77067

== ENCOUNTER → 2022-05-29 | Outpatient (CLI) | payer BC ==
--- NOTE | 2022-05-29 10:16 | Diagnostic Imaging Report ---
Indication: Routine screening. Comparison is made with prior mammograms 05/28/2021 and 02/09/2020. 2-D and 3-D bilateral screening mammography was performed with CAD. Both breasts are heterogeneously dense, limiting the sensitivity of mammography. The parenchymal pattern is stable. No dominant mass or malignant-appearing microcalcifications are seen. Axillae are unremarkable. IMPRESSION: BI-RADS Category 1 No mammographic features suspicious for malignancy are identified. ACR BI-RADS Category 1: Negative. Result letter will be mailed to the patient. Note: At least 10% of breast cancer is not imaged by mammography. Dictated by: Dictated on workstation # [id number]
== END ==
LOC: RAD 07:30
PROVIDERS: ATTEND Family Medicine
DX: Z12.31 Encounter for screening mammogram for malignant neoplasm of breast (principal)
CPT/HCPCS: 77063; 77067

== ENCOUNTER → 2022-09-22 | Outpatient (RCR) | payer BC | END | disposition home or self-care (01) | PROVIDERS: ATTEND Family Medicine | DX: M54.2 Cervicalgia (principal); M54.6 Pain in thoracic spine ==

== ENCOUNTER 2022-09-24 11:09 | Outpatient (RCR) | payer BC | END 2022-10-20 | disposition home or self-care (01) | PROVIDERS: ATTEND Family Medicine | DX: M54.2 Cervicalgia (principal); M54.6 Pain in thoracic spine ==

== ENCOUNTER → 2023-06-02 | Outpatient (CLI) | payer BC ==
--- NOTE | 2023-06-02 12:01 | Diagnostic Imaging Report ---
INDICATION: Screening. EXAMINATION: Bilateral digital 2D and 3D screening with CAD. COMPARISON: May 2022, May 2021, and January 2020. BREAST DENSITY: 2. FINDINGS: No suspicious mass, architectural distortion, spiculated lesion, suspicious calcifications, or changes to suggest malignancy. IMPRESSION: Negative. ACR BI-RADS Category 1: Negative. Result letter will be mailed to the patient. Note: At least 10% of breast cancer is not imaged by mammography. Dictated by: Dictated on workstation # [id number]
== END ==
LOC: RAD 07:45
PROVIDERS: ATTEND Family Medicine
DX: Z12.31 Encounter for screening mammogram for malignant neoplasm of breast (principal)
CPT/HCPCS: 77063; 77067